=== PATIENT | female | born 1950 | race Caucasian/White ===

== ENCOUNTER 2017-04-30 06:17 | Day surgery (SDC) | payer BC, MEDICARE ==
[~2017-04-30] VITALS: Ht 160 cm; Wt 67.1 kg
[~2017-04-30 06:17] MED LIST: AMLO5TAB2 PO; ATOR20TA58 PO; FURO40TA4 PO; HEPARIN SODIUM 5,000 UNIT in IV NORMAL SALINE 500ML BAG 500 ML IRR ONE; LINA5TAB4 PO; PANT40TA5 PO
[2017-04-30] MEDS ORDERED: MORPHINE SULFATE 2 MG/ML DISP.SYRIN. IV PRN (07:00)
[2017-04-30] MEDS ORDERED: fentaNYL PF VIAL 100 MCG/2 ML VIAL IV PRN (07:00)
[2017-04-30] MEDS ORDERED: HYDROmorphone 2 MG/ML VIAL IV PRN (07:00)
[2017-04-30] MEDS ORDERED: LIDOCAINE 1% 1 ML SYRINGE. ID PRN (07:00)
[2017-04-30] MEDS ORDERED: IV RINGERS,LACTATED 1000ML 1,000 ML IV SCH (07:00)
[2017-04-30] MEDS ORDERED: ONDANSETRON PF 4 MG/2 ML VIAL. IV PRN (07:00)
[2017-04-30] MEDS ORDERED: NEOMY/BACITR/POLYMYXIN OINT PACKET. TP ONE (07:05)
[2017-04-30] MEDS ORDERED: BUPIVACAINE-EPI 0.5%-1:200000 50 ML VIAL. ONE (07:05)
[2017-04-30] MEDS ORDERED: fentaNYL PF VIAL 100 MCG/2 ML VIAL ONE ×2 (07:36→09:19)
[2017-04-30] MEDS ORDERED: ROCURONIUM 100 MG/10 ML VIAL. ONE (07:36)
[2017-04-30] MEDS ORDERED: DESFLURANE 61 TO 120 MINUTES IH ONE (08:44)
[2017-04-30] MEDS ORDERED: DEXAMETHASONE SOD PHOS 20 MG/5 ML VIAL. ONE (08:44)
[2017-04-30] MEDS ORDERED: ONDANSETRON PF 4 MG/2 ML VIAL. ONE (08:44)
[2017-04-30] MEDS ORDERED: PROPOFOL 20 ML IV ONE (08:44)
[2017-04-30] MEDS ORDERED: LIDOCAINE 2% PF Vial for OR 5 ML VIAL. ONE ×2 (08:44→09:19)
[2017-04-30] MEDS ORDERED: GLYCOPYRROLATE 1 MG/5 ML VIAL. ONE (08:45)
[2017-04-30] MEDS ORDERED: NEOSTIGMINE 10 MG/10 ML VIAL. ONE (08:45)
[2017-04-30] MEDS ORDERED: SEVOFLURANE 61 TO 120 MINUTES. IH ONE (08:55)
--- NOTE | 2017-04-30 09:10 | PDOC ---
BRIEF OPERATIVE NOTE Date: Apr 30, 2017 Pre-Op Diagnosis ESRD Post-Op Diagnosis same with abdominal adhesions Procedure Performed l/s placement of PD catheter, ELVA Surgeon Bernardo Anesthesia Type: General Blood Loss 10cc IV Fluid 1000cc Urine Output 100cc Specimens Obtained none Findings RUQ adhesions, otherwise unremarkable Complications none OPerative Note WK # [id number] RONY WASHBURN MD Apr 30, 2017 09:10
--- NOTE | 2017-04-30 09:11 | DISCH ---
DISCHARGE INSTRUCTIONS Condition on Discharge Condition on Discharge: Stable Activity After Discharge Activity Instructions for Disc: Activity as tolerated, Avoid exertion Lifting Instructions after Dis: No heavy lifting Driving Instructions after Dis: Do not drive Diet after Discharge Diet after Discharge: Regular Follow-Up Follow Up With: Bernardo two weeks RONY WASHBURN MD Apr 30, 2017 09:11
[2017-04-30] MEDS ORDERED: SENN1TAB70 PO (09:19)
[2017-04-30] MEDS ORDERED: OXYC-323 PO (09:19)
[2017-04-30] MEDS: fentaNYL PF VIAL 100 MCG/2 ML VIAL IV PRN ×2 (09:21→09:45)
[2017-04-30] MEDS ORDERED: oxyCODONE/APAP 5/325 1 TAB TABLET PO ONE (09:45)
[2017-04-30] MEDS ORDERED: PROCHLORPERAZINE 10 MG/2 ML VIAL. ONE (10:00)
[2017-04-30] MEDS: PROCHLORPERAZINE 10 MG/2 ML VIAL. IV PRN ×2 (10:01→10:20)
[2017-04-30 10:29] VITALS: BP 132/62
--- NOTE | 2017-04-30 10:45 | OP ---
DATE OF SURGERY: 04/30/2017 PREOPERATIVE DIAGNOSIS: End-stage renal disease, requesting peritoneal dialysis catheter placement. POSTOPERATIVE DIAGNOSIS: End-stage renal disease, requesting peritoneal dialysis catheter placement, with abdominal adhesions. PROCEDURE: Laparoscopic placement of peritoneal dialysis catheter and lysis of adhesions. SURGEON: Nicholas Washburn MD ANESTHESIA: General endotracheal. ESTIMATED BLOOD LOSS: 10. IV FLUID. 1 liter. URINE OUTPUT: 100. INDICATIONS: The patient is a 67-year-old lady on hemodialysis, who is requesting PD catheter and she is brought for placement of the catheter. OPERATIVE FINDINGS: There were omental adhesions in the right upper quadrant. Otherwise, visual inspection of the abdomen was unremarkable. OPERATIVE REPORT: The patient was brought to the operating suite, given a general endotracheal anesthetic. Tripp catheter placed to dependent drainage and the abdomen prepped and draped in usual sterile fashion. The template was used to belkis the location for the catheter placement noting the patient's belt line is 4 fingerbreadths above the umbilicus. Marcaine 0.5% with epinephrine was infiltrated in the midline epigastrium. Incision was made and a 5 mm Visiport used to gain access into the abdominal cavity, taking care to avoid injury to abdominal contents. Pneumoperitoneum established. Camera inserted and inspection carried out with results as noted above. To facilitate takedown of the adhesions, the insertion site of the catheter was infiltrated with local anesthetic, sharply incised and a 5-mm port was placed under direct vision. This allowed access for the Sonicision to take down omental adhesions, taking care to avoid injury to the adjacent bowel. Once this was accomplished, the catheter was threaded into the true pelvis through the previous port site. It was tunneled subcutaneously and exited in the left upper quadrant below the belt line. The distal cuff had been placed just above the peritoneum. Catheter was flushed with 500 mL of normal saline, which were readily accepted and then drained a similar amount. Incisions were closed with interrupted 3-0 Vicryl in subcutaneous tissue, 4-0 Monocryl with Steri-Strips for the skin. The catheter was "packed" with 60 mL of heparinized saline. Sterile dressings applied. Tripp catheter removed. The patient awakened from her anesthetic and taken to the recovery room in satisfactory condition. NICHOLAS WASHBURN MD DR: VIVEK/monica JOB#: [id number] / [id number]
== END 2017-04-30 10:36 | disposition home or self-care (01) ==
LOC: SURG 06:17
PROVIDERS: ATTEND Surgery
DX: I12.0 Hypertensive chronic kidney disease with stage 5 chronic kidney disease or end stage renal disease (principal); E11.22 Type 2 diabetes mellitus with diabetic chronic kidney disease; N18.6 End stage renal disease; Z99.2 Dependence on renal dialysis; Z87.39 Personal history of other diseases of the musculoskeletal system and connective tissue; Z86.39 Personal history of other endocrine, nutritional and metabolic disease; Z88.8 Allergy status to other drugs, medicaments and biological substances
CPT/HCPCS: 49324; 82962; C1769; J0690; J0780; J1100; J1644; J2405; J2704; J2710; J3010; J3490; J7030; J7040; J7120; J2001